=== PATIENT | male | born 1950 | race Caucasian/White ===

== ENCOUNTER 2018-01-07 11:58 | Emergency (ER) | payer MEDICARE, OTHER, SELFPAY ==
[2018-01-07 11:59] VITALS: BP 138/90; PULSE 55; RESP 19; TEMP 36.9; O2SAT 97; BMI 25.8
--- NOTE | 2018-01-07 13:55 | ED.VISSUMM ---
- ER Visit Summary Date of Service: 01/07/18 Chief Complaint: Eye pain History of Present Illness: The patient is a 67 M with right eye pain since he woke up this morning. Feels like something is in his eye. No trauma, but he was cleaning some metal filings yesterday. He wears glasses but no contacts. No visual changes. Worsened by blinking. He is concerned for foreign body. No fevers or recent illness. No rashes. No history of this in the past. Physical Examination: Afebrile and vital signs unremarkable. Patient appears uncomfortable but not toxic or in distress. Head is normal to inspection. Eyes shows conjunctival injection diffusely. Pupils normal and reactive. Lids everted and no foreign body appreciated. Funduscopic exam limited, but unremarkable. Extraocular structures normal. Test Results: Emergency Department Course and Treatment: Tetracaine and fluorescein applied. Pain resolved with tetracaine. No foreign bodies, abrasions, ulcerations noted. Negative Trish sign. Right eye pressure 17 and left eye pressure 13. I am not sure what is causing his eye pain. Pain resolved with tetracaine. He has risk factors and symptoms concerning for corneal abrasion. I do not visualize a foreign body or abrasion. But we will treat accordingly. He was treated with erythromycin ophthalmic ointment. He was referred to ophthalmology for follow-up tomorrow. Return if he has trouble following up, new, or worsening symptoms. Treatment Plan: As above Disposition: Discharged Impression: 1. Right eye pain This note was generated with [employer] dictation software. It may contain incorrect words, spelling, and punctuation that were not noted in review of the chart prior to signing ED Disposition - Plan for ED Patient: Chief Complaint: Eye Problem Referrals: [facility] Doctor,Out of [Primary Care Provider] -
--- NOTE | 2018-01-07 13:58 | ED.DEP ---
ED Disposition - Plan for ED Patient: Chief Complaint: Eye Problem Instructions: Corneal Injury Referrals: Greg Edwards MD [STAFF PHYSICIAN] -
[2018-01-07] MEDS: Erythromycin Base 1 OPTH.TUBE 1 APPLIC RIGHT EYE (14:31)
[2018-01-07] MEDS: Tetracaine 0.5% Ophthalmic Bottle 1 DRP RIGHT EYE (14:31)
[2018-01-07] MEDS: Fluorescein 1 MG STRIP 1 STRIP RIGHT EYE (14:31)
[2018-01-07 14:39] VITALS: BP 142/63; PULSE 75; RESP 15; O2SAT 97
== END 2018-01-07 14:40 | disposition home or self-care (01) ==
PROVIDERS: Emergency Provider Emergency Medicine
DX: H57.11 Ocular pain, right eye (principal)
CPT/HCPCS: 99283

== ENCOUNTER 2024-01-29 18:48 | Emergency (ER) | payer MEDICARE, OTHER, SELFPAY ==
[2024-01-29 18:50] VITALS: BP 124/86; PULSE 72; RESP 16; TEMP 36.6; O2SAT 98; BMI 26.6
--- NOTE | 2024-01-29 20:34 | ED.RN ---
Pt states he doesn't want to wait any longer, I've been here for 2 hrs. Pt states [facility] for [facility] tetanus booster and his son who is a life skills specialist will fix up my finger. Pt voices understanding to return for any complications or further needs. Pt and spouse thank this RN for the attention they've received thus far. Pt and spouse ambulated out of dept without difficulty.
== END 2024-01-29 20:45 | disposition left against medical advice (07) ==
LOC: ED 21:04
DX: Z00.00 Encounter for general adult medical examination without abnormal findings (principal)